=== PATIENT | female | born 1980 | race Hispanic/Latino ===

== ENCOUNTER 2017-02-18 08:38 | Day surgery (SDC) | payer OTHER ==
[~2017-02-18] VITALS: Ht 165.1 cm; Wt 63.5 kg
[~2017-02-18 08:38] MED LIST: ALEVE220 MG PO; FLEXERIL10 MG PO; MOTRIN IB200 MG PO; MOTRIN600 MG PO
[2017-02-18 09:10] VITALS: BP 131/70
[2017-02-18] MEDS ORDERED: IBUPROFEN800 MG PO (11:33)
[2017-02-18] MEDS ORDERED: HYDROCODON-ACE1 EAC7 PO (11:33)
[2017-02-18 14:23] VITALS: BP 107/56
[2017-02-18 16:27] VITALS: BP 105/61
[2017-02-18 17:50] VITALS: BP 100/68
== END 2017-02-18 17:55 | disposition home or self-care (01) ==
LOC: SDC
DX: N92.0 Excessive and frequent menstruation with regular cycle (principal); N94.6 Dysmenorrhea, unspecified; N80.0 Endometriosis of uterus; N85.6 Intrauterine synechiae; N72 Inflammatory disease of cervix uteri; D25.9 Leiomyoma of uterus, unspecified; Z98.51 Tubal ligation status; Z82.49 Family history of ischemic heart disease and other diseases of the circulatory system
CPT/HCPCS: 88307; J0131; J0690; J1100; J1170; J1885; J2250; J2405; J2710; J2765; J3010

== ENCOUNTER 2018-02-09 12:10 | Emergency (ER) | payer OTHER ==
[~2018-02-09] VITALS: Ht 167.6 cm; Wt 71.6 kg
[~2018-02-09 12:10] MED LIST changes: +HYDROCODON-ACE1 EAC7 PO; +IBUPROFEN800 MG PO
[2018-02-09 12:15] VITALS: BP 109/65
[2018-02-09 12:35] LABS: APPEARANCE CLEAR ((CLEAR)); BILIRUBIN NEGATIVE; BLOOD NEGATIVE; COLOR YELLOW ((YELLOW)); GLUCOSE (STRIP) NEGATIVE; KETONES NEGATIVE; LEUKOCYTES NEGATIVE; NITRITE NEGATIVE; PROTEIN (STRIP) NEGATIVE; SPECIFIC GRAVITY 1.009 (1.000-1.030); UCUL ADDED? NO; UROBILINOGEN 0.2 MG/DL (0.2-1.0)
[2018-02-09 12:43] LABS: HEMATOCRIT 38.2 % (36.0-46.0); HEMOGLOBIN 12.9 G/DL (11.9-15.5); MCH 31.6 PG (29.0-34.0); MCHC 33.8 G/DL (30.0-36.0); MCV 93.6 FL (83-99); PLATELET COUNT 255 K/uL (156-360); RBC DIS.WIDTH-CV 12.1 % (11.8-14.6); RBC DIS.WIDTH-SD 41.5 % (39-53); RED BLOOD COUNT 4.08 M/uL (3.80-5.20); WHITE BLOOD COUNT 5.1 K/uL (4.1-10.2)
[2018-02-09 12:57] LABS: ALBUMIN 4.1 g/dL (3.2-4.8); CHLORIDE 107 mEq/L (99-109); POTASSIUM 4.4 mEq/L (3.7-5.4); SODIUM 143 mEq/L (136-147)
[2018-02-09 13:00] LABS: GLUCOSE 81 mg/dL (70-99); TOTAL PROTEIN 6.9 g/dL (6.4-8.3)
[2018-02-09 13:02] LABS: TOTAL BILIRUBIN 0.3 mg/dL (0.0-1.0)
[2018-02-09 13:03] LABS: ALKALINE PHOSPHATASE 43 IU/L (3-129); CREATININE 0.8 mg/dL (0.6-1.3); GFR ESTIMATE (CALCULATED) > 59 mL/min/
[2018-02-09 13:04] LABS: UREA NITROGEN (BUN) 12 mg/dL (9-23)
[2018-02-09 13:05] LABS: AST (GOT) 13 IU/L (2-34)
[2018-02-09 13:06] LABS: ALT (GPT) 9 IU/L (3-49)
[2018-02-09 13:14] LABS: QUANTITATIVE HCG < 4.0 MIU/ML
[2018-02-09] MEDS ORDERED: NORCO 5/3251 TABLET PO (14:59)
[2018-02-09] MEDS ORDERED: MOTRIN800 MG PO (14:59)
== END 2018-02-09 15:08 | disposition home or self-care (01) ==
LOC: EME 12:10
DX: Q62.39 Other obstructive defects of renal pelvis and ureter (principal); Z98.51 Tubal ligation status
CPT/HCPCS: 74176; 80053; 81003; 84702; 85027; 99281; 99284